=== PATIENT | female | born 1990 | race Two or more races ===

== ENCOUNTER 2020-09-19 12:21 | Emergency (ER) | payer MEDICAID ==
[~2020-09-19] VITALS: Ht 160 cm; Wt 78.2 kg
--- NOTE | 2020-09-19 12:34 | NUR ---
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
[2020-09-19 12:53] LABS: BASOPHILS % (AUTO) 0 % (0-1); EOSINOPHILS % (AUTO) 1 % (1-7); LYMPHOCYTES % (AUTO) 10 % (22-44); MEAN CORPUSCULAR HGB CONC 33.2 g/dL (32.4-35.8); MONOCYTES % (AUTO) 4 % (2-9); NEUTROPHILS % (AUTO) 86 % (42-75); PLATELET COUNT 357 x10^3/uL (130-400); RED BLOOD COUNT 5.28 x10^6/uL (3.82-5.3)
[2020-09-19] MEDS ORDERED: SODIUM CHLORIDE FLUSH 10ML SYR IVF ONE ×2 (13:00→14:30)
[2020-09-19 13:14] LABS: ANION GAP 8 mmol/L (5-15); CALCIUM 9.2 mg/dL (8.5-10.1); CHLORIDE 105 mmol/L (98-107)
[2020-09-19 13:15] LABS: ALANINE AMINOTRANSFERASE 50 U/L (12-78); ALBUMIN 3.8 g/dL (3.4-5.0); ALKALINE PHOSPHATASE 83 U/L (45-117); BILIRUBIN,TOTAL 0.7 mg/dL (0.2-1.0); CREATININE 0.86 mg/dL (0.55-1.02); TOTAL PROTEIN 8.3 g/dL (6.4-8.2)
--- NOTE | 2020-09-19 13:51 | NUR ---
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
--- NOTE | 2020-09-19 14:00 | NUR ---
First contact with pt. Pt c/o RLQ abd pain since this morning with one episode of emesis. Pt denies diarrhea or dysuria. Pt reports pain is 7/10 at this time. Pt placed in gown, positioned for comfort in bed with warm blanket.
[2020-09-19 14:04] LABS: MICROSCOPIC INDICATED
--- NOTE | 2020-09-19 14:05 | NUR ---
Dr. Jordan at bedside to evaluate pt.
[2020-09-19] MEDS ORDERED: ONDANSETRON 2MG/ML, 2ML ONE (14:15)
[2020-09-19] MEDS ORDERED: MORPHINE SULFATE 4 MG/ML, 1ML ONE (14:15)
--- NOTE | 2020-09-19 14:23 | NUR ---
Pt medicated per APR. Report to Rosmery FRIAS.
[2020-09-19] MEDS ORDERED: MORPHINE SULFATE 4 MG/ML, 1ML IVPush PRN (14:30)
[2020-09-19] MEDS ORDERED: SODIUM CHLORIDE 0.9% 1,000ML IVBOLUS ONE (14:30)
[2020-09-19] MEDS ORDERED: ONDANSETRON 2MG/ML, 2ML IVPush ONE (14:30)
[2020-09-19] MEDS ORDERED: OMNIPAQUE 350 MG/ML, 100ML BOTTLE ONE (15:00)
[2020-09-19] MEDS ORDERED: KETOROLAC 30 MG/1 ML ONE ×2 (15:44→15:45)
--- NOTE | 2020-09-19 15:50 | NUR ---
pt resting in bed. vss .nadn. medicated per emar.
[2020-09-19] MEDS ORDERED: KETOROLAC 15 MG/1ML IVPush ONE (16:00)
[2020-09-19 16:55] VITALS: BP 115/61
--- NOTE | 2020-09-19 16:55 | NUR ---
Patient given discharge instructions and they have confirmed that they understand the instructions. Patient ambulatory with steady gait. NAD, all questions answered appropriately, denies additional needs at this time. No personal belongings left in room after discharge.
== END 2020-09-19 16:56 | disposition home or self-care (01) ==
LOC: ED 15:01
DX: N20.1 Calculus of ureter (principal)
CPT/HCPCS: 36415; 74177; 80053; 81001; 84703; 85025; 96361; 96374; 96375; 99285; J1885; J2270; J2405; J7030; Q9967